=== PATIENT | male | born 1985 ===

== ENCOUNTER 2020-03-05 12:23 | Emergency (ER) | payer SELFPAY ==
[~2020-03-05] VITALS: Ht 182.9 cm; Wt 104.3 kg
--- NOTE | 2020-03-05 13:01 | NUR ---
Patient discharged to home in stable condition. Written and verbal after care instructions given. Patient verbalizes understanding of instructions. Stressed follow up or return to ER for worsening s/s.
== END 2020-03-05 13:02 | disposition home or self-care (01) ==
LOC: ER 12:23
DX: S21.219D Laceration without foreign body of unspecified back wall of thorax without penetration into thoracic cavity, subsequent encounter (principal); L08.9 Local infection of the skin and subcutaneous tissue, unspecified; X58.XXXD Exposure to other specified factors, subsequent encounter; R03.0 Elevated blood-pressure reading, without diagnosis of hypertension
CPT/HCPCS: A4663